=== PATIENT | female | born 1940 | race Caucasian/White ===

== ENCOUNTER → 2024-02-20 12:02 | Outpatient (REF) | payer MEDICARE, SELFPAY ==
[2024-02-20 14:14] LABS: % Basophils 0.6 % (0-2); % Eosinophils 1.5 % (0-6); % Immature Granulocytes 0.2 % (0-0.5); % Lymphocytes 37.1 % (20.5-51.1); % Monocytes 9.3 % (1.7-9.3); % Neutrophils 51.3 % (42.2-75.2); Absolute Eosinophils 0.1 10^3/uL (0-0.7); Absolute Monocytes 0.5 10^3/uL (0.1-0.6); Absolute Neutrophils 2.8 10^3/uL (1.4-6.5); Hematocrit 33.5 % (37.0-47.0); Hemoglobin 12.1 g/dL (12.0-16.0); Mean Corp Hgb Conc. 36.1 g/dL (33.0-37.0); Mean Corpuscular Volume 99.7 fL (81.0-99.0); Mean Platelet Volume 11.1 fL (7.4-10.4); Nucleated Red Blood Cells % 0 %; Platelet Count 187 10^3/uL (130-400); Red Blood Cell Count 3.36 10^6/uL (4.20-5.40); Red Cell Dist. Width 13.8 % (11.5-14.5); White Blood Cell Count 5.4 10^3/uL (4.8-10.8)
[2024-02-20 14:20] LABS: Erythrocyte Sed Rate 49 mm/hour (0-20)
[2024-02-20 14:32] LABS: ALT (SGPT) 14 U/L (0-35); AST (SGOT) 23 U/L (14-36); Albumin 4.6 g/dl (3.5-5.0); Alkaline Phosphatase 101 U/L (38-126); Blood Urea Nitrogen 20 mg/dl (7-17); Calcium 10.3 mg/dl (8.4-10.2); Carbon Dioxide 26 mmol/L (22-30); Chloride 101 mmol/L (98-107); Glucose 89 mg/dl (70-99); Potassium 4.9 mmol/L (3.5-5.1); Sodium 137 mmol/L (135-145); Total Bilirubin 0.5 mg/dl (0.2-1.3); Total Protein 8.1 g/dl (6.3-8.2); eGFR > 60.00
[2024-02-20 14:43] LABS: Total Iron Binding Capacity 321 ug/dl (265-497)
[2024-02-20 15:25] LABS: C-Reactive Protein < 5.00 mg/L (0.0-10.00)
[2024-02-20 16:02] LABS: Ferritin 69.2 ng/ml (11.1-264.0)
[2024-02-20 16:14] LABS: Hepatitis B Core Ab, Total Negative (Negative); Hepatitis B Surface Antibody Negative
[2024-02-20 16:16] LABS: Vitamin B12 455 pg/ml (239-931)
[2024-02-20 19:00] LABS: Hepatitis B Surface Antigen Negative (Negative)
[2024-02-22 19:34] LABS: Vitamin D 1,25 Dihydroxy 48.3 pg/mL (19.9-79.3)
== END ==
LOC: REG 12:02
PROVIDERS: ATTENDING PHYSICIAN Internal Medicine; FAMILY PHYSICIAN Family Medicine; OTHER PHYSICIAN Dermatology; OTHER PHYSICIAN Obstetrics & Gynecology
DX: K51.90 Ulcerative colitis, unspecified, without complications (principal)
CPT/HCPCS: 36415; 80053; 82607; 82652; 82728; 83550; 85025; 85652; 86140; 86704; 86706; 87340

== ENCOUNTER → 2024-03-05 15:23 | Outpatient (REF) | payer MEDICARE, SELFPAY ==
[2024-03-08 06:14] LABS: Calprotectin, Fecal 38 ug/g (<=49)
== END ==
LOC: REG 15:23
PROVIDERS: ATTENDING PHYSICIAN Internal Medicine
DX: K51.90 Ulcerative colitis, unspecified, without complications (principal)
CPT/HCPCS: 83993

== ENCOUNTER → 2024-11-26 12:24 | Outpatient (REF) | payer MEDICARE, SELFPAY ==
[2024-11-26 12:46] LABS: % Basophils 0.5 % (0-2); % Eosinophils 1.5 % (0-6); % Immature Granulocytes 0.2 % (0-0.5); % Lymphocytes 34.2 % (20.5-51.1); % Monocytes 10.8 % (1.7-9.3); % Neutrophils 52.8 % (42.2-75.2); Absolute Eosinophils 0.1 10^3/uL (0-0.7); Absolute Monocytes 0.6 10^3/uL (0.1-0.6); Absolute Neutrophils 3.1 10^3/uL (1.4-6.5); Hematocrit 34.7 % (37.0-47.0); Hemoglobin 11.7 g/dL (12.0-16.0); Mean Corp Hgb Conc. 33.7 g/dL (33.0-37.0); Mean Corpuscular Hgb 32.7 pg (27.0-31.0); Mean Corpuscular Volume 96.9 fL (81.0-99.0); Mean Platelet Volume 10.5 fL (7.4-10.4); Nucleated Red Blood Cells % 0 %; Platelet Count 166 10^3/uL (130-400); Red Blood Cell Count 3.58 10^6/uL (4.20-5.40); Red Cell Dist. Width 13.3 % (11.5-14.5); White Blood Cell Count 5.9 10^3/uL (4.8-10.8)
[2024-11-26 13:57] LABS: ALT (SGPT) 17 U/L (0-35); AST (SGOT) 22 U/L (14-36); Albumin 4.6 g/dl (3.5-5.0); Alkaline Phosphatase 78 U/L (38-126); Blood Urea Nitrogen 15 mg/dl (7-17); Calcium 9.7 mg/dl (8.4-10.2); Carbon Dioxide 27 mmol/L (22-30); Chloride 100 mmol/L (98-107); Glucose 90 mg/dl (70-99); Potassium 4.5 mmol/L (3.5-5.1); Sodium 136 mmol/L (135-145); Total Protein 7.7 g/dl (6.3-8.2); eGFR > 60.00
[2024-11-28 17:53] LABS: Quantiferon Mitogen minus NIL 9.98 IU/mL; Quantiferon NIL 0.02 IU/mL; Quantiferon TB Gold Plus Negative (Negative)
== END ==
LOC: REG 12:24
PROVIDERS: ATTENDING PHYSICIAN Internal Medicine; FAMILY PHYSICIAN Family Medicine; OTHER PHYSICIAN Dermatology; OTHER PHYSICIAN Obstetrics & Gynecology
DX: K51.011 Ulcerative (chronic) pancolitis with rectal bleeding (principal)
CPT/HCPCS: 36415; 80053; 85025; 86480

== ENCOUNTER 2025-02-18 15:12 | Emergency (ER) | payer MEDICARE, SELFPAY ==
[2025-02-18 15:19] VITALS: BP 140/63
[2025-02-18 15:33] LABS: % Basophils 0.6 % (0-2); % Eosinophils 2.1 % (0-6); % Immature Granulocytes 0.2 % (0-0.5); % Lymphocytes 36.6 % (20.5-51.1); % Monocytes 10.7 % (1.7-9.3); % Neutrophils 49.8 % (42.2-75.2); Absolute Eosinophils 0.1 10^3/uL (0-0.7); Absolute Lymphocytes 1.9 10^3/uL (1.2-3.4); Absolute Monocytes 0.6 10^3/uL (0.1-0.6); Absolute Neutrophils 2.6 10^3/uL (1.4-6.5); Hematocrit 32.2 % (37.0-47.0); Mean Corp Hgb Conc. 34.2 g/dL (33.0-37.0); Mean Corpuscular Hgb 32.3 pg (27.0-31.0); Mean Corpuscular Volume 94.4 fL (81.0-99.0); Mean Platelet Volume 10.6 fL (7.4-10.4); Nucleated Red Blood Cells % 0 %; Platelet Count 178 10^3/uL (130-400); Red Blood Cell Count 3.41 10^6/uL (4.20-5.40); Red Cell Dist. Width 13.8 % (11.5-14.5); White Blood Cell Count 5.1 10^3/uL (4.8-10.8)
[2025-02-18 15:57] LABS: ALT (SGPT) 15 U/L (0-35); AST (SGOT) 22 U/L (14-36); Albumin 4.2 g/dl (3.5-5.0); Alkaline Phosphatase 79 U/L (38-126); Blood Urea Nitrogen 20 mg/dl (7-17); Calcium 9.5 mg/dl (8.4-10.2); Carbon Dioxide 23 mmol/L (22-30); Chloride 106 mmol/L (98-107); Glucose 102 mg/dl (70-99); Potassium 4.4 mmol/L (3.5-5.1); Sodium 138 mmol/L (135-145); Total Bilirubin 0.5 mg/dl (0.2-1.3); Total Protein 7.6 g/dl (6.3-8.2); eGFR > 60.00
--- NOTE | 2025-02-18 17:14 | ED.GENMED ---
History of Present Illness
General
Chief Complaint: DVT/Possible Blood Clot
Source: patient
Time Seen by Provider: 02/18/25 16:59
History of Present Illness
History of Present Illness:
84-year-old female with past medical history of hypertension, ulcerative colitis and previous right lower extremity knee fusion presenting to the emergency department at the request of [facility] for evaluation of right lower extremity edema
with patient stating this has been noted for the last few days. Patient was at the [facility] today for her ulcerative colitis medication when it was noted by the infusion nurse with her recommending patient come to the ER to rule out DVT.
Patient has a secondary concern of lower blood pressures over the last few days despite being normotensive here. No recent medication changes. Patient denies any trauma. No cough or URI-like symptoms. Patient denies any color changes,
paresthesias, focal weakness or numbness or any other concerns about the right lower extremity.
Past History
Past History
ED Past Medical History: HTN, Other (Uc ulcerative colitis, macular degeneration) and Other (Migraines)
ED Past Surgical History: Orthopedic (L THR, R knee fusion) and Other (R temporal artery bx; Herniorrhaphy 1997; OU cataract extractions; D&C 2006; R heel surgery; ureteral surgeries x 2)
Social History
Tobacco: Former smoker
Alcohol: None
Drug: None
Personal:
Living: with family
Family History
Family History: Unable to obtain
Review of Systems
Review of Systems
All Other Systems: ROS reviewed and negative except as documented in HPI and ROS
Phy Exam
Physical Exam
Physical Exam:
GENERAL: Alert , in no apparent distress
EYE: conjunctiva clear
Head: Normocephalic atraumatic
NECK: Supple,
ENT: mmm.
LUNGS: no acute respiratory distress
NEUROLOGICAL: Alert and oriented
SKIN: Warm and dry, skin intact.
MUSCULOSKELETAL: Right lower extremity: There is mild edema from the knee distal compared to the left. Varicose veins noted bilaterally. Easily palpable pedal and tibial pulses bilaterally. Cap refill less than 2 seconds. Patient unable to flex
at the right knee which is baseline for her. Dusky appearance to both lower extremities likely related to some degree of venous insufficiency
PSYCH: Normal and appropriate interaction.
Scores
Heart Failure Risk
Heart Failure Risk Score: Not Applicable
Heart Score for Chest Pain Patients
STEMI patient?: Not applicable
Withdrawal Assessment of Alcohol
Withdrawal Assessment Completed?: Not applicable
Course
Orders/Labs/Results
Orders:
Orders
02/18/25 15:22
Legs, Right US [US Periph Venous LOWER Ext RT] Urgent
Comment:
Reason For Exam: swelling
02/18/25 15:28
Complete Blood Count/With Diff Urgent
Comprehensive Metabolic Panel Urgent
Abnormal Lab Results
02/18/25
15:28
RBC 3.41 L 10^6/uL
(4.20-5.40)
Hgb 11.0 L g/dL
(12.0-16.0)
Hct 32.2 L %
(37.0-47.0)
MCH 32.3 H pg
(27.0-31.0)
MPV 10.6 H fL
(7.4-10.4)
Monocytes % 10.7 H %
(1.7-9.3)
BUN 20 H mg/dl
(7-17)
Glucose 102 H mg/dl
(70-99)
02/18/25 15:28
02/18/25 15:28
Vital Signs
Initial and Last Documented VS:
Initial Vital Signs
Temp Pulse Resp BP Pulse Ox
98 F 62 16 140/63 98
02/18/25 15:19 02/18/25 15:19 02/18/25 15:19 02/18/25 15:19 02/18/25 15:19
Last Documented Vital Signs
Temp Pulse Resp BP Pulse Ox
98 F 62 16 140/63 98
02/18/25 15:19 02/18/25 15:19 02/18/25 15:19 02/18/25 15:19 02/18/25 15:19
MDM/Problems Addressed
Differential Diagnosis Includes:
DVT, SVT, venous insufficiency, PVD, PAD, renal dysfunction, volume overload, electrolyte derangement
MDM/Problems Addressed:
84-year-old female presenting to the ER for evaluation of right lower extremity edema that has been ongoing for the last couple of days, infusion nurse concern for possible DVT and recommended patient come to the ER to be further evaluated. Patient
has intact and equal pulses bilaterally, no concern for arterial complication. Labs ordered from triage are unremarkable for any acute pathologies. Ultrasound also ordered which is negative for DVT. Advise compression socks however patient states
this would be difficult for her to put on because of her inability to bend her right knee. I encouraged the patient to follow-up with her primary care provider as she may need a diuretic to help with some of the edema. Aware of return precautions
to the ER.
*Radiology
Radiology exam reviewed: radiology read reviewed
*Pulse Oximetry
Patient hypoxic: no
*Critical Care Note
Total Time (30-74mins, 75-104mins- exclusive of procedures): Not Applicable
ED Attending Note
-
Portions of this chart may have been created with voice recognition software.� Occasional wrong word or��sound alike� substitutions may have occurred due to the inherent limitations of voice recognition software.
Discharge Plan
Departure
Patient Disposition: Home (Routine Discharge)
Date of Disposition: 02/18/25
Time of Disposition: 17:14
Patient with high blood pressure during this ER visit?: Yes
Discharge Problem:
Edema of right lower extremity
Instructions: Swelling
Prescriptions:
No Action
calcium carbonate-vitamin D3 1 EACH tablet
600 mg PO BID
omega-3 fatty acids-fish oil [Fish Oil] 1,000 MG capsule
1,000 unit PO BID
lutein 20 MG tablet
20 mg PO DAILY
vit C,R-Eq-xnjwz-lutein-zeaxan [PreserVision AREDS-2] 1 EACH capsule
1 ea PO BID
L.acidoph,paracasei,B.animalis 1 EACH capsule
1 ea PO DAILY
acetaminophen 325 MG tablet
650 mg PO Q6HPRN PRN (Reason: mild pain/ fever>100.5F) 0RF
Cranberry
4,200 mg PO BID
estradiol 1 APPLIC cream
1 applic VAG MOTH
lisinopril 20 MG tablet
20 mg PO DAILY
infliximab-dyyb [Inflectra] 100 MG/10 ML recon soln
100 mg IV .[id number]
methenamine hippurate 1 GRAM tablet
1 g PO BID
multivitamin with folic acid [Tab-A-Ashkan] 1 TABLET tablet
1 tab PO DAILY
lidocaine [Aspercreme (lidocaine)] 1 PATCH adhesive patch,medicated
2 patch topical DAILY Qty: 30 0RF
Rx Instructions:
lower back
polyethylene glycol 3350 17 GRAMS powder in packet
17 grams PO DAILYPRN PRN (Reason: mod constipation) Qty: 30 0RF
sennosides-docusate sodium 1 TABLET tablet
1 tab PO DAILY Qty: 30 0RF
tramadol 50 MG tablet
50 mg PO Q6HPRN PRN (Reason: moderate pain) Qty: 10 0RF
Interventions
Interventions:
*Risk Screen - Suicide Last Done: 02/18/25 15:22
*Neglect/Abuse Screening Last Done: 02/18/25 15:22
Discharge Date and Time
Print Language: BRAZILIAN
[2025-02-18 17:30] VITALS: BP 150/63
== END 2025-02-18 17:30 | disposition home or self-care (01) ==
LOC: EMR 15:12
PROVIDERS: EMERGENCY PHYSICIAN Emergency Medicine
DX: R60.0 Localized edema (principal); I10 Essential (primary) hypertension; K51.90 Ulcerative colitis, unspecified, without complications; H35.30 Unspecified macular degeneration; Z87.891 Personal history of nicotine dependence
CPT/HCPCS: 99284; 80053; 85025; 93971

== ENCOUNTER 2025-02-22 18:00 | Emergency (ER) | payer MEDICARE, SELFPAY ==
[2025-02-22 18:02] VITALS: BP 150/62
[2025-02-22 19:07] VITALS: BP 158/55
[2025-02-22 19:13] VITALS: BMI 28.1
--- NOTE | 2025-02-22 19:21 | ED.GENMED ---
History of Present Illness
General
Chief Complaint: Vascular Symptoms
Time Seen by Provider: 02/22/25 18:42
History of Present Illness
History of Present Illness:
84-year-old female presents the emergency department for evaluation of ecchymosis to the right great toe. She was seen here 4 days ago for right lower extremity edema and had a DVT study that was unremarkable. She denies any pain in the leg or the
foot, due to significant orthopedic injuries she requires walker assistance for ambulation. Denies any pain to the calf or foot with ambulation. She is concerned about vascular disease, per chart notes from 4 days ago she had strong palpable
pulses in the foot and ankle
Past History
Past History
ED Past Medical History: HTN, Other (Uc ulcerative colitis, macular degeneration) and Other (Migraines)
ED Past Surgical History: Orthopedic (L THR, R knee fusion) and Other (R temporal artery bx; Herniorrhaphy 1997; OU cataract extractions; D&C 2006; R heel surgery; ureteral surgeries x 2)
Social History
Tobacco: Former smoker
Alcohol: None
Drug: None
Personal:
Living: with family
Family History
Family History: Unable to obtain
Review of Systems
Review of Systems
Allergies reviewed?: Yes
All Other Systems: ROS reviewed and negative except as documented in HPI and ROS
Phy Exam
Physical Exam
Physical Exam:
GEN: Well appearing, NAD, WDWN
HEENT: Oral mucosa moist, no scleral icterus
Cardiac: Regular rate
Lung: No respiratory distress, no tachypnea
MSK: Diffuse edema of the right lower extremity with numerous telangiectasias and skin changes of venous stasis. Strong dorsalis pedis and posterior tibialis pulses by palpation. Doppler waveform detected to the digital artery of the great toe.
There is scant ecchymosis to the dorsal surface of the right great toe, normal range of motion with no deformities
Skin: Good color, no pallor or jaundice, no rashes
Neuro: AO x3, moves all extremities freely
Psych: Calm, cooperative
Course
Orders/Labs/Results
Orders:
Orders
02/22/25 19:19
CR Toe(s) Min 2 Vw Right Urgent
Comment:
Reason For Exam: bruising
Vital Signs
Initial and Last Documented VS:
Initial Vital Signs
Temp Pulse Resp BP Pulse Ox
98.6 F 63 16 150/62 97
02/22/25 18:02 02/22/25 18:02 02/22/25 18:02 02/22/25 18:02 02/22/25 18:02
Last Documented Vital Signs
Temp Pulse Resp BP Pulse Ox
98.6 F 63 16 168/58 95
02/22/25 18:02 02/22/25 18:02 02/22/25 18:02 02/22/25 21:14 02/22/25 20:33
MDM/Problems Addressed
MDM/Problems Addressed:
Patient has strong pulses palpably to the right foot as well as by Doppler to the right great toe. No clinical symptoms of peripheral arterial disease. Likely spontaneous ecchymosis, x-rays unremarkable
*Critical Care Note
Total Time (30-74mins, 75-104mins- exclusive of procedures): Not Applicable
ED Attending Note
-
Portions of this chart may have been created with voice recognition software.� Occasional wrong word or��sound alike� substitutions may have occurred due to the inherent limitations of voice recognition software.
Discharge Plan
Departure
Patient Disposition: Home (Routine Discharge)
Date of Disposition: 02/22/25
Time of Disposition: 21:06
Patient with high blood pressure during this ER visit?: No
Discharge Problem:
Bruised toe
Prescriptions:
No Action
calcium carbonate-vitamin D3 1 EACH tablet
600 mg PO BID
omega-3 fatty acids-fish oil [Fish Oil] 1,000 MG capsule
1,000 unit PO BID
lutein 20 MG tablet
20 mg PO DAILY
vit C,L-Ea-wuroi-lutein-zeaxan [PreserVision AREDS-2] 1 EACH capsule
1 ea PO BID
L.acidoph,paracasei,B.animalis 1 EACH capsule
1 ea PO DAILY
acetaminophen 325 MG tablet
650 mg PO Q6HPRN PRN (Reason: mild pain/ fever>100.5F) 0RF
Cranberry
4,200 mg PO BID
estradiol 1 APPLIC cream
1 applic VAG MOTH
lisinopril 20 MG tablet
20 mg PO DAILY
infliximab-dyyb [Inflectra] 100 MG/10 ML recon soln
100 mg IV .[id number]
methenamine hippurate 1 GRAM tablet
1 g PO BID
multivitamin with folic acid [Tab-A-Ashkan] 1 TABLET tablet
1 tab PO DAILY
lidocaine [Aspercreme (lidocaine)] 1 PATCH adhesive patch,medicated
2 patch topical DAILY Qty: 30 0RF
Rx Instructions:
lower back
polyethylene glycol 3350 17 GRAMS powder in packet
17 grams PO DAILYPRN PRN (Reason: mod constipation) Qty: 30 0RF
sennosides-docusate sodium 1 TABLET tablet
1 tab PO DAILY Qty: 30 0RF
tramadol 50 MG tablet
50 mg PO Q6HPRN PRN (Reason: moderate pain) Qty: 10 0RF
Referrals:
Itz Gomez DO [Family Provider, Family Practice]
Activity Restrictions/Additional Instructions:
You have strong pulses thus I do not have any concern for arterial disease. This is likely capillary rupture or spontaneous bruising
Interventions
Interventions:
*Risk Screen - Suicide Last Done: 02/22/25 19:19
*General Assessment Last Done: 02/22/25 19:19
*Neglect/Abuse Screening Last Done: 02/22/25 19:19
*ED- Fall Risk Assessment Last Done: 02/22/25 19:19
*ED COVID-19 Vaccine History Last Done: 02/22/25 19:19
*Nursing Disposition Last Done: 02/22/25 21:26
ED- Cardiac Assessment Last Done: 02/22/25 19:19
ED- Pulmonary Assessment Last Done: 02/22/25 19:19
ED-Peripheral Vascular Assessment Last Done: 02/22/25 19:19
ED-Skin Assessment Last Done: 02/22/25 19:19
Discharge Date and Time
Discharge Date/Time: 02/22/25 21:27
Print Language: [id number]
[2025-02-22 20:00] VITALS: BP 169/60
[2025-02-22 21:14] VITALS: BP 168/58
== END 2025-02-22 21:27 | disposition home or self-care (01) ==
LOC: EMR 18:00
PROVIDERS: EMERGENCY PHYSICIAN Emergency Medicine; FAMILY PHYSICIAN Family Medicine
DX: S90.111A Contusion of right great toe without damage to nail, initial encounter (principal); X58.XXXA Exposure to other specified factors, initial encounter; I10 Essential (primary) hypertension; K51.90 Ulcerative colitis, unspecified, without complications; H35.30 Unspecified macular degeneration; Z87.891 Personal history of nicotine dependence
CPT/HCPCS: 99283; 73660

== ENCOUNTER → 2025-06-16 10:27 | Outpatient (REF) | payer MEDICARE, SELFPAY ==
[2025-06-16 12:24] LABS: Hematocrit 33.3 % (37.0-47.0); Hemoglobin 11.6 g/dL (12.0-16.0); Mean Corp Hgb Conc. 34.8 g/dL (33.0-37.0); Mean Corpuscular Volume 99.4 fL (81.0-99.0); Nucleated Red Blood Cells % 0 %; Platelet Count 213 10^3/uL (130-400); Red Cell Dist. Width 14.0 % (11.5-14.5)
[2025-06-16 12:33] LABS: ALT (SGPT) 16 U/L (0-35); AST (SGOT) 21 U/L (14-36); Albumin 4.4 g/dl (3.5-5.0); Alkaline Phosphatase 74 U/L (38-126); Blood Urea Nitrogen 14 mg/dl (7-17); Calcium 9.9 mg/dl (8.4-10.2); Carbon Dioxide 28 mmol/L (22-30); Chloride 100 mmol/L (98-107); Glucose 81 mg/dl (70-99); Iron 82 ug/dl (37-170); Potassium 5.3 mmol/L (3.5-5.1); Sodium 135 mmol/L (135-145); Total Protein 7.8 g/dl (6.3-8.2); Vitamin D, 25-OH*** 46.1 ng/mL (30-80); eGFR > 60.00
[2025-06-16 12:51] LABS: Ferritin 81.6 ng/ml (11.1-264.0)
[2025-06-16 13:07] LABS: Vitamin B12 692 pg/ml (239-931)
[2025-06-17 18:55] LABS: Folate > 20.0 ng/ml (2.76-20)
[2025-06-18 20:40] LABS: Hepatitis B Surface Antigen Negative (Negative)
== END ==
LOC: REG 10:27
PROVIDERS: ATTENDING PHYSICIAN Internal Medicine; FAMILY PHYSICIAN Family Medicine; REFERRING PHYSICIAN Dermatology
DX: K51.011 Ulcerative (chronic) pancolitis with rectal bleeding (principal); D64.9 Anemia, unspecified; K51.90 Ulcerative colitis, unspecified, without complications; K51.00 Ulcerative (chronic) pancolitis without complications
CPT/HCPCS: 36415; 80053; 82306; 82607; 82728; 82746; 83540; 85025; 87340